=== PATIENT | male | born 1945 | race Caucasian/White ===

== ENCOUNTER 2018-10-26 08:41 | Emergency (ER) | payer MEDICARE ==
--- NOTE | 2018-10-26 08:53 | ED Physician Documentation ---
PD HPI SKIN - Stated complaint Stated Complaint: RED SPOTS ON ARMS - History obtained from History obtained from: Patient - History of Present Illness Timing - onset: How many days ago (2) Timing - duration: Days (2) Timing - details: Gradual onset, Still present Location: [place] (He initially noted a couple of red itchy spots on his lower back. Later in the day he developed one on his left upper arm and then yesterday noted one on the right arm and right side of the neck. He is not aware of any unusual foods per se. He looked around on the bed and did not notice any bugs per se. He is traveling here for a seminar and has been staying in a hotel for the last several days. He is returning home tomorrow. He has not had any prior similar episodes.) Quality / character: Itchy, Discolored (red), Raised, Swelling. No: Vesicular, Draining Improved by: Benadryl (but have not gone away over the 2 days) Associated symptoms: No: Fever Contributing factors: No: Exposed to medication, Insect bite /sting, Recent illness Similar symptoms before: Has not had sx before Review of Systems Constitutional: denies: Fever Nose: denies: Rhinorrhea / runny nose, Congestion Throat: denies: Sore throat Respiratory: denies: Dyspnea, Cough GI: denies: Nausea, Vomiting PD PAST MEDICAL HISTORY - Past Medical History Endocrine/Autoimmune: None - Present Medications Home Medications: Ambulatory Orders Medication Instructions Recorded Confirmed Aspirin 325 mg PO DAILY 10/26/18 10/26/18 Cetirizine [ZyrTEC] 10 mg PO DAILY #15 tablet 10/26/18 Rosuvastatin Calcium [Crestor] 40 mg 10/26/18 dexAMETHasone [Decadron] 4 mg PO DAILY #5 tablet 10/26/18 - Allergies Allergies/Adverse Reactions: Allergies Allergy/AdvReac Type Severity Reaction Status Date / Time No Known Drug Allergies Allergy Verified 10/26/18 08:54 PD ED PE NORMAL - Vitals Vital signs reviewed: Yes - General General: Alert and oriented X 3, No acute distress, Well developed/nourished - HEENT HEENT: Pharynx benign - Neck Neck: Supple, no meningeal sign, No adenopathy - Cardiac Cardiac: RRR, No murmur - Respiratory Respiratory: Clear bilaterally - Derm Derm: Normal color, Warm and dry, Other (He has discrete areas of induration and raised skin with redness and warmth without any fluctuance over several areas. There is one on the right upper arm and another on the left upper arm and one on the right side of the neck and several on his lower back. 2 on the arms look to have a central red spot consistent with the bite. There are no pustular appearance.) Results - Vitals Vitals: Vital Signs - 24 hr 10/26/18 10/26/18 08:45 09:35 Temperature 36 C L Heart Rate 59 L 60 Respiratory 16 16 Rate Blood Pressure 188/92 H 159/74 H O2 Saturation 97 Oxygen O2 Source Room air PD MEDICAL DECISION MAKING - ED course Complexity details: considered differential (He has multiple areas of welts/hives that are more consistent with allergic reaction. He would be unusual to have this many separate spots of infection and they do not look cellulitic per se. We will treat with steroids and antihistamines. Consider local reaction such as back by's from the hotel he staying in. Alternatively could be skin manifestation of it general reaction such as food allergy. He is returning home tomorrow and can follow-up with his primary care if the steroid and antihistamine are not improving it.), d/w patient Departure - Departure Disposition: 01 Home, Self Care Clinical Impression: Hives Condition: Stable Record reviewed to determine appropriate education?: Yes Instructions: ED Allergic Reaction Local Other, ED Urticaria Prescriptions: Cetirizine [ZyrTEC] 10 mg PO DAILY #15 tablet dexAMETHasone [Decadron] 4 mg PO DAILY #5 tablet Comments: Given the multiple locations of this, it does not look like infections. I would think it either an allergic reaction generally which is manifesting in the skin in multiple places (such as food allergy etc.), or local reactions to bites or such (such as bedbugs). Continue the Benadryl as needed for itchiness. Add a long-acting antihistamine cetirizine daily for the next several days to week or so. Add Decadron steroid which will decrease the inflammatory response to either general or local reaction. This should help through the day today and over the next few days. Recheck if not improved over the next several days.
[2018-10-26] MEDS ORDERED: CHERRY SYRUP 10 ML UDC PO ONE (09:12)
[2018-10-26] MEDS ORDERED: DEXAMETHASONE 10 MG/ML VIAL PO STA (09:12)
[2018-10-26] MEDS ORDERED: CETIRIZINE 10 MG TABLET PO STA (09:12)
[2018-10-26 09:49] VITALS: BP 159/74
== END 2018-10-26 09:35 | disposition home or self-care (01) ==
LOC: ED 08:41
DX: L50.9 Urticaria, unspecified (principal)
CPT/HCPCS: 99283